=== PATIENT | female | born 1965 | race Caucasian/White ===

== ENCOUNTER 2019-05-14 09:56 | Emergency (ER) | payer BC ==
--- OUTSIDE RECORDS SUMMARY | 2019-05-14 11:06 | XMS REPORT | Continuity of Care Document ---
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 Benign essential hypertension Jonathan Messer DO Onset: 09/21/2014 Raynaud's disease Rosa Isela Moser, KELLY Onset: 06/28/2013 Moderate major depression, single episode Jonathan Messer DO Onset: 2004 Gastroesophageal reflux disease Jonathan Messer DO Onset: 02/05/2005 Peptic reflux disease Jonathan Messer DO Onset: 03/20/2015 Hereditary hemochromatosis Yonathan Gomez DO Onset: 04/20/2018 Social History Type Date Description Comments Sex Unknown Marital Status Lives With Spouse 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 Tobacco Use Start: Unknown Never Smoked Cigarettes ETOH Use Occasionally consumes alcohol Tobacco Use Start: Unknown End: Patient is a former smoker 25 years ago Unknown Allergies, Adverse Reactions, Alerts Active Allergies Reaction Severity Comments Date Bactrim 05/07/2016 Inactive Allergies NKDA 11/29/2014 Medications Active Medications SIG Qnty Indications Ordering Provider Date Vitamin D-1000 1 by mouth every Yonathan Gomez, 02/02/2019 Maximum Strength day DO 1000Unit Tablets Trazodone HCL Take 1 Tablet By 30tabs Yonathan Gomez, 09/07/2018 50mg Mouth AT Bedtime DO Tablets as Needed For Insomnia Metaxalone 1 by mouth every 30tabs Yonathan Gomez, 09/07/2018 800mg night at bedtime DO Tablets as needed for muscle spasm Lisinopril Take 1 Tablet By 90tabs I10 Yonathan Gomez, 10/06/2015 40mg Tablets Mouth Every Day DO Wellbutrin XL 1 po qd 30tabs J01.00 Bruno Erickson MD 150mg Tablets ER 24HR Amphetamine-Dextroamp 2 po daily J01.00 Bruno Erickson MD hetamine 20mg Tablets Vitamin B12 5000 Units Daily Unknown History Medications [facility] Vitamin B12 Unknown 02/02/2019 - 04/22/2019 Metronidazole 1 by mouth 2 times 14tabs K57.32 Ashely, 08/28/2018 - 500mg a day MD Lizzy 09/04/2018 Tablets Ciprofloxacin HCL 1 by mouth twice a 14tabs K57.32 Ashely, 08/28/2018 - 500mg day MD Lizzy 09/04/2018 Tablets Azithromycin 2 tablets by mouth 6tabs J01.00 Jason, 04/16/2018 - 250mg on day 1 then 1 DO Yonathan 04/20/2018 Tablets tablet on days 2-5 Ciprofloxacin HCL 1 by mouth twice a 14tabs R10.32 Jason, 01/08/2018 - 500mg day DO Yonathan 01/15/2018 Tablets Metronidazole 1 by mouth three 21tabs R10.32 Jason, 01/08/2018 - 500mg times a day x 7 DO Yonathan 01/15/2018 Tablets days Amlodipine Besylate 1 by mouth every 30tabs I73.00 Anna, 10/16/2017 - day DO Jonathan 09/04/2018 2.5mg Tablets Metaxalone Take 1 Tablet By 30tabs M54.5 Anna, 06/12/2017 - 800mg Mouth Three Times DO Jonathan 06/22/2017 Tablets Daily Triamcinolone 1 thin application 5gm K12.0 Daniel, 05/28/2017 - Acetonide to affected areas AKIKO Rdz 01/06/2019 0.1% Paste at bedtime Benzonatate 1 by mouth three 30caps J06.9 Anna, 12/06/2016 - 200mg times a day DO Jonathan 04/16/2017 Capsules Azithromycin 2 by mouth on day 1 6tabs R05 Digiovanna, 08/05/2016 - 250mg and 1 by mouth day KELLY Natarajan 08/10/2016 Tablets 2-5 Benzonatate 1 by mouth every 8 30caps R05 Digiovanna, 07/16/2016 - 200mg hours as needed for KELLY Natarajan 10/16/2016 Capsules cough, may cause drowsiness Cephalexin 1 by mouth three 30tabs L03.211 Digiovanna, 05/07/2016 - 500mg times a day KELLY Natarajan 05/17/2016 Tablets Amlodipine Besylate 1 by mouth every 90tabs I73.00 Anna, 04/09/2016 - day DO Jonathan 04/16/2017 2.5mg Tablets Lidocaine Apply 1 Patch To 30units M54.5 Anna, 04/09/2016 - 5% Patches Low Back Area Q 12 DO Jonathan 04/16/2017 Hours prn Diflucan 1 by mouth now 1tabs Anna, 03/15/2016 - 150mg Tablets DO Jonathan 10/16/2016 Cephalexin 1 by mouth three 30tabs L03.211 Anna, 03/12/2016 - 500mg times a day DO Jonathan 04/09/2016 Tablets Sulfamethoxazole/Trim 1 by mouth every 12 20tabs L03.211 Digiovanna, 03/11 - ethoprim DS hours for 10 days KELLY Natarajan 03/12/2016 800-160mg Tablets Tramadol HCL 1 by mouth every 4 60tabs Anna, 12/26/2015 - 50mg hours as needed DO Jonathan 10/16/2016 Tablets Diflucan 1 PO Now 1tabs Anna, 09/05/2015 - 150mg Tablets DO Jonathan 10/06/2015 Ciprofloxacin HCL 1 by mouth twice a 20tabs K57.32 Anna, 08/29/2015 - 500mg day Jonathan, DO 10/06/2015 Tablets Flagyl 1 by mouth twice a 20tabs K57.32 Nana, 08/29/2015 - 500mg Tablets day Jonathan, DO 10/06/2015 Fluconazole 1 by mouth daily as 1tabs Gomez, 08/03/2015 - 150mg needed Yonathan, DO 08/04/2015 Tablets Triamcinolone apply to affected 15gm N76.0 Gomez, 08/02/2015 - Acetonide area bid-tid Yonathan, DO 08/09/2015 0.1% Cream Ciprofloxacin HCL 1 by mouth twice a 10tabs R35.0 Gomez, 08/02/2015 - 250mg day x 5 days Yonathan, DO 08/07/2015 Tablets Robitussin ac 2 teaspoon by mouth 300ml 465.9 Anna, 11/29/2014 - every 4 hours as Jonathan, DO 04/06/2015 needed x 5 days Lisinopril 1 By Mouth Every 90tabs Anna, 03/03/2014 - 20mg Tablets Day Jonathan, DO 10/06/2015 Metaxalone Take 1 Tablet By 30tabs M54.5 Anna, 06/28/2013 - 800mg Mouth Three Times Jonathan, DO 04/16/2017 Tablets Daily Valacyclovir HCL take 1 tablet by 10tabs B00.9 Gomez, 10/29/2012 - 500mg mouth twice daily Yonathan, DO 03/07/2018 Tablets for 5 days Immunizations CPT Code Status Date Vaccine Reaction Lot # [id number] Given 08/18/2018 Influenza Virus Vaccine,Quadrivalent,Split, Preserv Free, 0.5mL,[place] [address] Given 11/21/2017 Influenza Vac, Quadrivalent, Split, 0.5mL Dosage, Im Use Q2037 Given 10/01/2016 Fluvirin Immunization Q2037 Given 09/18/2015 Fluvirin Immunization 03641 Given 09/18/2015 Influenza Vaccine Preservative Free 6-35 Months Of Age 46785 Given 08/29/2015 Tdap (Adacel) Ages 7 And Im inj completed, Pt [id number] Above Only tolerated well 38112 Given 07/22/2013 Afluria Or Fluvirin Flu Vac Intramuscular 16974 Given 02/05/2005 Immunization Td 7 Yrs Or Older 27043 Given 09/12/2003 Afluria Or Fluvirin Flu Vac Intramuscular Vital Signs Date Vital Result Comment 04/22/2019 7:58am Weight 153.00 lb Heart Rate 76 /min BP Systolic 118 mmHg BP Diastolic 78 mmHg Respiratory Rate 17 /min Height 67.75 inches 5'7.75" BMI (Body Mass Index) 23.4 kg/m2 01/06/2019 1:20pm Weight 150.00 lb Heart Rate 90 /min BP Systolic 144 mmHg BP Diastolic 84 mmHg BP Systolic Recheck 128 mmHg BP Diastolic Recheck 80 mmHg Respiratory Rate 17 /min Height 67.75 inches 5'7.75" (12/06/16) BMI (Body Mass Index) 23.0 kg/m2 10/20/2018 10:10am Weight 150.00 lb Heart Rate 76 /min BP Systolic 122 mmHg BP Diastolic 80 mmHg Respiratory Rate 17 /min Height 67.75 inches 5'7.75" (12/06/16) BMI (Body Mass Index) 23.0 kg/m2 09/07/2018 11:14am Weight 152.00 lb Heart Rate 76 /min BP Systolic 130 mmHg BP Diastolic 80 mmHg Respiratory Rate 16 /min Height 67.75 inches 5'7.75" (12/06/16) BMI (Body Mass Index) 23.3 kg/m2 08/28/2018 1:20pm Body Temperature 98.3 F Weight 152.00 lb Heart Rate 74 /min BP Systolic 132 mmHg BP Diastolic 80 mmHg Respiratory Rate 14 /min Height 67.75 inches 5'7.75" (12/06/16) O2 % BldC Oximetry 100 % BMI (Body Mass Index) 23.3 kg/m2 04/20/2018 3:50pm Body Temperature 99.2 F Weight 158.00 lb Heart Rate 96 /min BP Systolic 138 mmHg BP Diastolic 84 mmHg Respiratory Rate 17 /min Height 67.75 inches 5'7.75" (12/06/16) BMI (Body Mass Index) 24.2 kg/m2 04/16/2018 10:36am Body Temperature 98.6 F 600MG Advil 2 Hours Ago Weight 157.00 lb Heart Rate 94 /min BP Systolic 122 mmHg BP Diastolic 72 mmHg Respiratory Rate 18 /min Height 67.75 inches 5'7.75" (12/06/16) O2 % BldC Oximetry 99 % BMI (Body Mass Index) 24.0 kg/m2 01/08/2018 4:28pm Body Temperature 98.4 F Weight 161.00 lb Heart Rate 90 /min BP Systolic 118 mmHg BP Diastolic 72 mmHg Respiratory Rate 16 /min Height 67.75 inches 5'7.75" (12/06/16) O2 % BldC Oximetry 100 % BMI (Body Mass Index) 24.7 kg/m2 Pain Level 1 10/16/2017 7:59am Weight 156.00 lb Heart Rate 72 /min 72 Reg BP Systolic 118 mmHg BP Diastolic 72 mmHg BP Systolic Recheck 126 mmHg BP Diastolic Recheck 78 mmHg Respiratory Rate 18 /min Height 67.75 inches 5'7.75" (12/06/16) BMI (Body Mass Index) 23.9 kg/m2 05/28/2017 2:31pm Body Temperature 98.4 F Weight 152.00 lb Heart Rate 78 /min BP Systolic 120 mmHg BP Diastolic 80 mmHg Respiratory Rate 18 /min Height 67.75 inches 5'7.75" (12/06/16) BMI (Body Mass Index) 23.3 kg/m2 04/16/2017 9:33am Weight 154.44 lb Heart Rate 76 /min 72 Reg BP Systolic 114 mmHg BP Diastolic 76 mmHg BP Systolic Recheck 120 mmHg BP Diastolic Recheck 78 mmHg Respiratory Rate 16 /min Height 67.75 inches 5'7.75" (12/06/16) BMI (Body Mass Index) 23.7 kg/m2 12/06/2016 8:28am Body Temperature 97.4 F Weight 163.00 lb Heart Rate 72 /min BP Systolic 114 mmHg BP Diastolic 78 mmHg Respiratory Rate 18 /min Height 67.75 inches 5'7.75" (12/06/16) O2 % BldC Oximetry 100 % Ra BMI (Body Mass Index) 25.0 kg/m2 10/16/2016 10:47am Weight 159.00 lb Heart Rate 66 /min 72 Reg BP Systolic 110 mmHg BP Diastolic 82 mmHg BP Systolic Recheck 110 mmHg BP Diastolic Recheck 80 mmHg Respiratory Rate 18 /min Height 68 inches 5'8" (10/16/16) BMI (Body Mass Index) 24.2 kg/m2 08/05/2016 8:11am Body Temperature 97.2 F Weight 150.00 lb Heart Rate 84 /min BP Systolic 110 mmHg BP Diastolic 70 mmHg Respiratory Rate 18 /min Height 68 inches 5'8" O2 % BldC Oximetry 100 % BMI (Body Mass Index) 22.8 kg/m2 07/16/2016 11:23am Body Temperature 98.2 F Weight 146.00 lb Heart Rate 94 /min BP Systolic 132 mmHg BP Diastolic 80 mmHg Respiratory Rate 17 /min Height 68 inches 5'8" O2 % BldC Oximetry 99 % Ra BMI (Body Mass Index) 22.2 kg/m2 04/09/2016 8:14am Weight 149.00 lb Heart Rate 72 /min BP Systolic 122 mmHg BP Diastolic 80 mmHg Respiratory Rate 18 /min Height 68 inches 5'8" BMI (Body Mass Index) 22.7 kg/m2 03/11/2016 10:45am Body Temperature 98.6 F Weight 156.00 lb Heart Rate 74 /min BP Systolic 110 mmHg BP Diastolic 72 mmHg Respiratory Rate 18 /min Height 68 inches 5'8" BMI (Body Mass Index) 23.7 kg/m2 01/02/2016 1:45pm Weight 158.50 lb Heart Rate 72 /min BP Systolic 110 mmHg BP Diastolic 68 mmHg Respiratory Rate 18 /min 12/25/2015 3:59pm Body Temperature 98.4 F Weight 159.44 lb Heart Rate 66 /min BP Systolic 128 mmHg BP Diastolic 70 mmHg Respiratory Rate 18 /min 10/06/2015 9:03am Weight 154.44 lb Heart Rate 66 /min 72 reg BP Systolic 130 mmHg BP Diastolic 78 mmHg BP Systolic Recheck 138 mmHg BP Diastolic Recheck 88 mmHg Respiratory Rate 18 /min 08/29/2015 2:19pm Weight 985.00 lb Heart Rate 78 /min BP Systolic 110 mmHg BP Diastolic 80 mmHg Respiratory Rate 18 /min Height 68 inches 5'8" BMI (Body Mass Index) 149.8 kg/m2 08/02/2015 1:51pm Body Temperature 97.0 F Weight 157.00 lb Heart Rate 82 /min BP Systolic 102 mmHg BP Diastolic 62 mmHg Respiratory Rate 18 /min Height 68 inches 5'8" BMI (Body Mass Index) 23.9 kg/m2 04/06/2015 1:50pm Weight 152.00 lb Heart Rate 60 /min 72 Reg BP Systolic 120 mmHg BP Diastolic 76 mmHg BP Systolic Recheck 110 mmHg BP Diastolic Recheck 74 mmHg Respiratory Rate 18 /min Height 68 inches 5'8" O2 Saturation Level with Exercise 99 % Ra BMI (Body Mass Index) 23.1 kg/m2 11/29/2014 10:56am Body Temperature 98.2 F Weight 156.00 lb Heart Rate 66 /min BP Systolic 134 mmHg BP Diastolic 82 mmHg Respiratory Rate 24 /min Height 68 inches 5'8" O2 % BldC Oximetry 99 % Ra BMI (Body Mass Index) 23.7 kg/m2 09/21/2014 9:21am BP Systolic 118 mmHg BP Diastolic 80 mmHg 09/21/2014 9:21am Weight 149.00 lb Heart Rate 72 /min 80 Reg BP Systolic 120 mmHg BP Diastolic 82 mmHg Respiratory Rate 18 /min Height 68.01 inches 5'8.01" 09/1603/21/2014 10:19am BP Systolic 114 mmHg BP Diastolic 78 mmHg 03/21/2014 10:19am Weight 147.00 lb Heart Rate 78 /min 72 Reg BP Systolic 112 mmHg BP Diastolic 62 mmHg Respiratory Rate 18 /min Height 68 inches 5'8" 02/17/2014 1:04pm BP Systolic 148 mmHg Both Arms BP Diastolic 100 mmHg Both Arms 02/17/2014 1:04pm Weight 150.00 lb Heart Rate 72 /min 80 Reg BP Systolic 142 mmHg BP Diastolic 90 mmHg Respiratory Rate 18 /min Height 68 inches 5'8" 01/13/2014 10:12am BP Systolic 130 mmHg BP Diastolic 84 mmHg 01/13/2014 10:12am Body Temperature 98.7 F Weight 158.00 lb Heart Rate 72 /min BP Systolic 150 mmHg BP Diastolic 92 mmHg Respiratory Rate 18 /min 06/28/2013 1:30pm Weight 141.00 lb Heart Rate 66 /min BP Systolic 102 mmHg BP Diastolic 62 mmHg Respiratory Rate 18 /min 10/13/2012 9:25am Weight 142.06 lb Heart Rate 68 /min BP Systolic 108 mmHg BP Diastolic 72 mmHg Respiratory Rate 16 /min Height 68 inches 5'8" 07/11/2011 3:39pm Weight 149.00 lb Heart Rate 72 /min BP Systolic 122 mmHg BP Diastolic 62 mmHg Respiratory Rate 24 /min 07/04/2011 2:15pm Body Temperature 98.6 F Weight 148.00 lb Heart Rate 72 /min BP Systolic 110 mmHg BP Diastolic 62 mmHg Respiratory Rate 18 /min Height 68 inches 5'8" 03/01/2011 9:49am Body Temperature 98.9 F Weight 166.00 lb Heart Rate 68 /min BP Systolic 120 mmHg BP Diastolic 74 mmHg Respiratory Rate 14 /min Height 68 inches 5'8" 09/10/2010 2:58pm Weight 175.00 lb BP Systolic 124 mmHg BP Diastolic 70 mmHg 11/10/2009 3:14pm Weight 182.00 lb Heart Rate 78 /min BP Systolic 122 mmHg BP Diastolic 80 mmHg Respiratory Rate 18 /min 05/08/2009 3:00pm Weight 165.00 lb Heart Rate 72 /min BP Systolic 128 mmHg BP Diastolic 68 mmHg Respiratory Rate 18 /min 01/06/2009 2:54pm Weight 180.00 lb Heart Rate 78 /min BP Systolic 118 mmHg BP Diastolic 72 mmHg Respiratory Rate 18 /min 12/09/2008 1:31pm Weight 184.00 lb Heart Rate 72 /min BP Systolic 118 mmHg BP Diastolic 82 mmHg Respiratory Rate 18 /min 12/02/2008 3:15pm Weight 183.00 lb Heart Rate 72 /min BP Systolic 130 mmHg BP Diastolic 82 mmHg Respiratory Rate 24 /min 08/31/2008 3:50pm Weight 180.00 lb Heart Rate 78 /min BP Systolic 122 mmHg BP Diastolic 88 mmHg Respiratory Rate 16 /min 11/04/2007 3:21pm Body Temperature 97.7 F Weight 174.25 lb Heart Rate 78 /min BP Systolic 118 mmHg BP Diastolic 86 mmHg Respiratory Rate 24 /min O2 % BldC Oximetry 99 % 10/09/2007 3:55pm Weight 170.00 lb Heart Rate 62 /min BP Systolic 124 mmHg BP Diastolic 76 mmHg Respiratory Rate 14 /min 09/03/2007 1:54pm Heart Rate 72 /min BP Systolic 112 mmHg BP Diastolic 74 mmHg Respiratory Rate 18 /min 04/17/2007 3:58pm Body Temperature 97.9 F Weight 166.00 lb Heart Rate 78 /min BP Systolic 112 mmHg BP Diastolic 64 mmHg Respiratory Rate 18 /min 02/19/2007 2:41pm Weight 161.00 lb Heart Rate 72 /min BP Systolic 112 mmHg BP Diastolic 68 mmHg Respiratory Rate 12 /min 02/13/2007 3:01pm Heart Rate 72 /min BP Systolic 122 mmHg BP Diastolic 70 mmHg Respiratory Rate 18 /min 11/21/2005 10:18am Body Temperature 98.7 F Weight 176.00 lb Heart Rate 90 /min BP Systolic 120 mmHg RIGHT BP Diastolic 90 mmHg RIGHT 10/15/2005 1:05pm Heart Rate 96 /min Reg BP Systolic 128 mmHg LEFT BP Diastolic 80 mmHg LEFT 09/09/2005 10:48am BP Systolic 130 mmHg HR 90Reg BP Diastolic 88 mmHg HR 90Reg 09/09/2005 10:48am Weight 175.00 lb Heart Rate 96 /min Reg BP Systolic 140 mmHg LEFT BP Diastolic 98 mmHg LEFT 08/08/2005 1:45pm Weight 167.00 lb Heart Rate 96 /min Reg BP Systolic 120 mmHg LEFT BP Diastolic 86 mmHg LEFT 07/09/2005 2:07pm Weight 167.00 lb Heart Rate 96 /min Reg BP Systolic 124 mmHg LEFT BP Diastolic 80 mmHg LEFT 02/05/2005 3:01pm Weight 172.00 lb Heart Rate 108 /min Reg BP Systolic 112 mmHg RIGHT BP Diastolic 88 mmHg RIGHT 01/18/2005 3:24pm Weight 169.00 lb Heart Rate 104 /min Reg BP Systolic 130 mmHg BP Diastolic 88 mmHg Results Test Date Facility Test Result H/L Range Note Basic (BMP) 04/15/2019 [facility] Sodium 142 mmol/L 135-146 1 Potassium 4.3 mmol/L 3.5-5.2 Chloride# 102 mmol/L 97-110 2 Carbon Dioxide 30 mmol/L 24-34 Glucose 110 mg/dL High 70-105 BUN 21 mg/dL 6-26 Creatinine 1.1 mg/dL 0.5-1.4 Calcium 9.9 mg/dL 8.5-10.5 3 Female Egfr 55 Low >60 4 Male Egfr 73 >60 5 Anion Gap 10 mmol/L 5-15 6 CBC with Auto Diff-fcmg 04/15/2019 [facility] WBC 4.2 K/uL 4.1-11.0 RBC 4.47 M/uL 4.00-5.40 Hemoglobin 13.2 gm/dL 12.0-16.0 Hematocrit 39.2 % 36.0-47.0 MCV 87.7 fL 80.0-97.0 MCH 29.6 pg 27.0-32.0 MCHC 33.7 g/dL 32.0-36.0 RDW 13.2 % 11.5-14.5 PLT Count 219 K/ul 140-400 MPV 9.7 FL 7.1-10.7 Neutrophil 51.5 % 35.0-75.0 Lymphocyte 34.2 % 16.0-52.0 Monocyte 10.4 % High 2.0-10.0 Eosinophil 3.3 % 0.0-5.0 Basophil 0.6 % 0.0-4.0 Abs Neutrophils 2.2 K/uL 2.1-8.0 Abs Lymphocytes 1.4 K/uL 0.8-5.5 Abs Monocytes 0.4 K/uL 0.1-1.0 Abs Eosinophils 0.1 K/uL 0.0-0.5 Abs Basophils 0.0 K/uL 0.0-0.3 Laboratory test finding 04/15/2019 [facility] TSH 2.78 uIU/mL 0.35-4.94 Lipid Treatment 04/15/2019 [facility] Cholesterol 194 mg/dL 50-199 Triglycerides 86 mg/dL 30-200 HDL 78 mg/dL 35-85 7 Chol/ HDL Ratio 2.5 ratio Low 3.7-5.6 VLDL 17 mg/dL 2-29 LDL (Calc) 99 mg/dL 20-99 8 Alt 13 U/L 3-42 Ast 19 U/L 8-42 Laboratory test finding 04/15/2019 [facility] Vitamin B12 536 pg/mL 180- 914 Vitamin D 25 Hydroxy 28 ng/mL Low 30-100 9 Lyme Igm/Igg AB -RL 01/22/2019 [facility] Lyme Igm/Igg AB NEGATIVE (Neg) 10 @ Urinalysis With 01/04/2019 [facility] Urine Color YELLOW Yellow 11 Microscopic (315)- - Urine Clarity CLEAR Clear Urine Glucose - Dipstick NEGATIVE mg/dL Negative Urine Bilirubin - Dipstick NEGATIVE Negative Urine Ketone NEGATIVE mg/dL Negative Urine Specific [place] 1.015 N 1.010-1.030 Urine Blood TRACE Negative Urine PH 8.0 High 6.5-7.5 Urine Protein - Dipstick NEGATIVE mg/dL Negative Urine Urobilinogen - Dipstick 0.2 E.U./dL N 0.2-1.0 Urine Nitrite - Dipstick NEGATIVE Negative Urine Leuk Esterase TRACE Abnormal Negative Urine RBC 0-2 rbc/hpf 0-2 Urine WBC 2-5 wbc/hpf 0-7 Urine Epithelial Cells FEW /lpf None Seen Urine Bacteria VERY FEW None Seen Source: URINE, CLEAN CAT <SEE NOTE> 12 CBS W/Automated Diff 01/04/2019 [facility] White Blood 6.4 K/uL N 3.1-10.7 (315)- - Count Red Blood Count 4.67 M/uL N 3.90-5.40 Hemoglobin 13.5 gm/dL N 11.6-15.8 Hematocrit 40.0 % N 36.0-46.1 Mean Cell Volume 85.7 fl N 80.9-99.0 Mean Corpuscular HGB 28.9 pg N 25.9-32.7 Mean Corpuscular HGB Conc 33.8 g/dL N 30.8-34.3 Platelet Count 246 K/uL N 155-360 Red Cell Distri Width SD 38.8 fl N 36-47 Red Cell Distri Width %CV 12.8 % N 11.7-14.4 Mean Platelet Volume 10.6 fL N 8.9-12.4 Neut% 69.6 % N 40.4-72.8 Lymph % 18.6 % Low 20.0-42.0 Stewart % 10.7 % N 4.3-13.2 Eo% 0.9 % N 0.0-6.6 Bas% 0.2 % N 0.0-1.1 Neut# 4.42 K/uL N 1.8-7.0 Lymph # 1.18 K/uL N 1.0-4.0 Stewart # 0.68 K/uL N 0.3-0.9 Eos # 0.06 K/uL N 0.0-0.5 Baso # 0.01 K/uL N 0.0-0.1 CBC with Auto Diff[facility]L 4.1-11.0 13 RBC 4.42 M/uL 4.00-5.40 Hemoglobin 13.1 gm/dL 12.0-16.0 Hematocrit 38.9 % 36.0-47.0 MCV 87.9 fL 80.0-97.0 MCH 29.6 pg 27.0-32.0 MCHC 33.7 g/dL 32.0-36.0 RDW 12.7 % 11.5-14.5 PLT Count 226 K/ul 140-400 MPV 9.6 FL 7.1-10.7 Neutrophil 59.5 % 35.0-75.0 Lymphocyte 26.5 % 16.0-52.0 Monocyte 11.4 % High 2.0-10.0 Eosinophil 2.0 % 0.0-5.0 Basophil 0.6 % 0.0-4.0 Abs Neutrophils 3.2 K/uL 2.1-8.0 Abs Lymphocytes 1.4 K/uL 0.8-5.5 Abs Monocytes 0.6 K/uL 0.1-1.0 Abs Eosinophils 0.1 K/uL 0.0-0.5 Abs Basophils 0.0 K/uL 0.0-0.3 Basic (BMP) 10/13/2018 [facility] Sodium 143 mmol/L 135-146 14 Potassium 4.2 mmol/L 3.5-5.2 Chloride# 104 mmol/L 97-110 15 Carbon Dioxide 31 mmol/L 24-34 Glucose 86 mg/dL 70-105 BUN 24 mg/dL 6-26 Creatinine 0.9 mg/dL 0.5-1.4 Calcium 9.4 mg/dL 8.5-10.2 Non Kimberly Egfr >60 >60 16 Kimberly Egfr >60 >60 17 Anion Gap 8 mmol/L 5-15 18 Laboratory test finding 10/13/2018 [facility] TSH 1.91 uIU/mL 0.35-4.94 Lipid Treatment 10/13/2018 [facility] Cholesterol 186 mg/dL 50-199 Triglycerides 92 mg/dL 30-200 HDL 60 mg/dL 35-85 19 Chol/ HDL Ratio 3.1 ratio Low 3.7-5.6 VLDL 18 mg/dL 2-29 LDL (Calc) 107 mg/dL High 20-99 20 Alt 12 U/L 3-42 Ast 16 U/L 8-42 Urine Microscopic-Only 08/28/2018 [facility] Urine WBC 0-2 [HPF] (0-5) 21 Urine RBC NONE SEEN [HPF] (0-2) Mucus 1+ [HPF] Caox Crystals 1+ [HPF] 22 Laboratory test 08/28/2018 [facility] Urine Culture Microbiology res no w 23 finding <SEE NOTE> CBC With Auto Diff 04/13/2018 [facility] WBC 7.3 K/uL 4.1-11. 24 0 RBC 4.36 M/uL 4.00-5.40 Hemoglobin 12.9 gm/dL 12.0-16.0 Hematocrit 37.9 % 36.0-47.0 MCV 86.9 fL 80.0-97.0 MCH 29.6 pg 27.0-32.0 MCHC 34.1 g/dL 32.0-36.0 RDW 13.7 % 11.5-14.5 PLT Count 212 K/ul 140-400 MPV 9.3 FL 7.1-10.7 Neutrophil 80.8 % High 35.0-75.0 Lymphocyte 9.5 % Low 16.0-52.0 Monocyte 8.7 % 2.0-10.0 Eosinophil 0.7 % 0.0-5.0 Basophil 0.3 % 0.0-4.0 Abs Neutrophils 5.9 K/uL 2.1-8.0 Abs Lymphocytes 0.7 K/uL Low 0.8-5.5 Abs Monocytes 0.6 K/uL 0.1-1.0 Abs Eosinophils 0.0 K/uL 0.0-0.5 Abs Basophils 0.0 K/uL 0.0-0.3 Basic (BMP) 04/13/2018 [facility] Sodium 140 mmol/L 135-146 25 Potassium 4.3 mmol/L 3.5-5.2 Chloride# 102 mmol/L 97-110 26 Carbon Dioxide 28 mmol/L 24-34 Glucose 95 mg/dL 70-105 BUN 19 mg/dL 6-26 Creatinine 1.2 mg/dL 0.5-1.4 Calcium 9.6 mg/dL 8.5-10.2 Non Kimberly Egfr 49 Low >60 27 Kimberly Egfr 60 Low >60 28 Anion Gap 10 mmol/L 5-15 29 Lipid 04/13/2018 [facility] Cholesterol 200 mg/dL High 50-199 Triglycerides 137 mg/dL 30-200 HDL 80 mg/dL 35-85 30 Chol/ HDL Ratio 2.5 ratio Low 3.7-5.6 VLDL 27 mg/dL 2-29 LDL (Calc) 93 mg/dL 20-99 31 Laboratory test finding 04/13/2018 [facility] Magnesium 2.1 mg/dL 1.5-2.7 Hepatic Panel (LFT) 04/13/2018 [facility] Total Protein 6.8 g/dL 6.0-8.0 Albumin 4.5 g/dL 3.6-4.9 Total Bilirubin 0.7 mg/dL 0.1-1.3 Direct Bilirubin 0.1 mg/dL 0.0-0.4 Alkaline Phosphatase 51 U/L 24-140 Alt 11 U/L 3-42 Ast 17 U/L 8-42 CBC With Auto Diff 10/09/2017 [facility] WBC 4.5 K/uL 4.1-11.0 RBC 4.58 M/uL 4.00-5.40 Hemoglobin 13.5 gm/dL 12.0-16.0 Hematocrit 40.6 % 36.0-47.0 MCV 88.6 fL 80.0-97.0 MCH 29.5 pg 27.0-32.0 MCHC 33.3 g/dL 32.0-36.0 RDW 12.6 % 11.5-14.5 PLT Count 247 K/ul 140-400 MPV 9.9 FL 7.1-10.7 Neutrophil 55.0 % 35.0-75.0 Lymphocyte 30.0 % 16.0-52.0 Monocyte 11.6 % High 2.0-10.0 Eosinophil 2.8 % 0.0-5.0 Basophil 0.6 % 0.0-4.0 Abs Neutrophils 2.5 K/uL 2.1-8.0 Abs Lymphocytes 1.3 K/uL 0.8-5.5 Abs Monocytes 0.5 K/uL 0.1-1.0 Abs Eosinophils 0.1 K/uL 0.0-0.5 Abs Basophils 0.0 K/uL 0.0-0.3 Basic (BMP) 10/09/2017 [facility] Sodium 141 mmol/L 135-146 32 Potassium 4.1 mmol/L 3.5-5.2 Chloride# 101 mmol/L 97-110 33 Carbon Dioxide 30 mmol/L 24-34 Glucose 71 mg/dL 70-105 Creatinine 1.1 mg/dL 0.5-1.4 Calcium 10.2 mg/dL 8.5-10.2 Non Kimberly Egfr 53 Low >60 34 Kimberly Egfr >60 >60 35 Anion Gap 10 mmol/L 7-16 36 BUN 22 mg/dL 6-26 Lipid 10/09/2017 [facility] Cholesterol 206 mg/dL High 50-199 Triglycerides 120 mg/dL 30-150 HDL 78 mg/dL 45-85 37 Chol/ HDL Ratio 2.6 ratio Low 3.7-5.6 VLDL 24 mg/dL 2-29 LDL (Calc) 104 mg/dL 20-129 38 Laboratory test finding 10/09/2017 [facility] Magnesium 2.1 mg/dL 1.5-2.7 Hepatic Panel (LFT) 10/09/2017 [facility] Total Protein 6.7 g/dL 6.0-8.0 Albumin 4.8 g/dL 3.6-4.9 Total Bilirubin 0.6 mg/dL 0.1-1.3 Direct Bilirubin 0.1 mg/dL 0.0-0.4 Alkaline Phosphatase 54 U/L 24-140 Alt 12 U/L 3-42 Ast 16 U/L 8-42 Laboratory test 05/07/2017 [facility] Sedimentation Rate 2 mm/hr N 0-30 39, 40 finding (315)- - Vitamin B12 And 05/07/2017 [facility] Vitamin B12 316 pg/ mL N 193-986 Folate (315)- - Folic Acid 15.5 ng/mL N 3.1-17.5 Laboratory test 05/07/2017 [facility] Gamma Glutamyl 10 U /L N 5-85 finding (315)- - Transpeptidase CBC With Auto 04/09/2017 [facility] WBC 5.7 K/uL 4.1-11.0 41 Diff RBC 4.45 M/uL 4.00-5.40 Hemoglobin 13.0 gm/dL 12.0-16.0 Hematocrit 39.2 % 36.0-47.0 MCV 88.1 fL 80.0-97.0 MCH 29.2 pg 27.0-32.0 MCHC 33.2 g/dL 32.0-36.0 RDW 13.5 % 11.5-14.5 PLT Count 231 K/ul 140-400 Neutrophil 55.9 % 35.0-75.0 Lymphocyte 30.3 % 16.0-52.0 Monocyte 11.5 % High 2.0-10.0 Eosinophil 1.8 % 0.0-5.0 Basophil 0.5 % 0.0-4.0 Abs Neutrophils 3.2 K/uL 2.1-8.0 Abs Lymphocytes 1.7 K/uL 0.8-5.5 Abs Monocytes 0.7 K/uL 0.1-1.0 Abs Eosinophils 0.1 K/uL 0.0-0.5 Abs Basophils 0.0 K/uL 0.0-0.3 Basic (BMP) 04/09/2017 [facility] Sodium 143 mmol/L 135-146 42 Potassium 4.6 mmol/L 3.5-5.2 Chloride# 105 mmol/L 97-110 43 Carbon Dioxide 29 mmol/L 24-34 Glucose 92 mg/dL 70-105 BUN 27 mg/dL High 6-26 Creatinine 1.0 mg/dL 0.5-1.4 Calcium 9.9 mg/dL 8.5-10.2 Non Kimberly Egfr 59 Low >60 44 Kimberly Egfr >60 >60 45 Anion Gap 14 mmol/L 7-16 46 Lipid 04/09/2017 [facility] Cholesterol 195 mg/dL 50-199 Triglycerides 94 mg/dL 30-150 HDL 72 mg/dL 45-85 47 Chol/ HDL Ratio 2.7 ratio Low 3.7-5.6 VLDL 19 mg/dL 2-29 LDL (Calc) 104 mg/dL 20-129 48 Laboratory test finding 04/09/2017 [facility] Magnesium 2.0 mg/dL 1.5-2.7 Hepatic Panel (LFT) 04/09/2017 [facility] Total Protein 6.4 g/dL 6.0-8.0 Albumin 4.6 g/dL 3.6-4.9 Total Bilirubin 0.6 mg/dL 0.1-1.3 Direct Bilirubin 0.1 mg/dL 0.0-0.4 Alkaline Phosphatase 46 U/L 24-140 Alt 14 U/L 3-42 Ast 15 U/L 8-42 CBS W/Automated Diff 02/11/2017 [facility] White Blood 4.3 K/uL N 3.1-10.7 49 (315)- - Count Red Blood Count 4.51 M/uL N 3.90-5.40 Hemoglobin 13.2 gm/dL N 11.6-15.8 Hematocrit 40.3 % N 36.0-46.1 Mean Cell Volume 89.4 fl N 80.9-99.0 Mean Corpuscular HGB 29.3 pg N 25.9-32.7 Mean Corpuscular HGB Conc 32.8 g/dL N 30.8-34.3 Platelet Count 260 K/uL N 150-400 Red Cell Distri Width SD 43.8 fl N 3-47 Red Cell Distri Width %CV 13.7 % N 11.7-14.4 Mean Platelet Volume 12.0 fL N 8.9-12.4 Neut% 51.8 % N 40.4-72.8 Lymph % 35.3 % N 20.0-42.0 Stewart % 10.3 % N 4.3-13.2 Eo% 2.1 % N 0.0-6.6 Bas% 0.5 % N 0.0-1.1 Neut# 2.22 K/uL N 1.8-7.0 Lymph # 1.51 K/uL N 1.0-4.0 Stewart # 0.44 K/uL N 0.3-0.9 Eos # 0.09 K/uL N 0.0-0.5 Baso # 0.02 K/uL N 0.0-0.1 Iron-Tibc-%Sat 02/11/2017 [facility] Serum Iron 76 g/ dL N 50-170 (315)- - Total Iron Binding Capacity 353 g/dL N 250-450 Transferrin %Saturation 22 % N 12-57 Laboratory test finding 02/11/2017 [facility] Ferritin 20 ng/mL N 8-252 (315)- - Comprehensive Metabolic 02/11/2017 [facility] Glucose TNP mg/dL 74-106 50 Panel (315)- - BUN 23 mg/dL High 7-18 Creatinine 1.1 mg/dL N 0.6-1.3 Glom Filtration Rate, Estimate 56 mL/min >60 If >60 mL/min >60 51 BUN/Creat 20.9 ratio Sodium 141 mmol/L N 136-145 Potassium 4.1 mmol/L N 3.5-5.1 Chloride 104 mmol/L N 98-107 Carbon Dioxide 30 mmol/L N 21-32 Anion Gap 7 mEq/L Low 8-16 Calcium 9.1 mg/dL N 8.5-10.1 Total Protein 7.2 g/dL N 6.4-8.2 Albumin 4.1 g/dL N 3.4-5.0 Globulin 3.1 g/dL N 1.9-4.3 Alb/Glob 1.3 ratio Bilirubin,Total 0.4 mg/dL N 0.2-1.0 Sgot/Ast 17 U/L N 15-37 SGPT/Alt 23 U/L N 12-78 Alkaline Phosphatase 66 U/L N 45-117 Laboratory test 02/11/2017 [facility] Afp Tumor 3.3 ng/ mL 0.0-8.3 52 finding (315)- - Marker,Serum CBC With Auto 10/09/2016 [facility] WBC 4.9 K/uL 4.1-11.0 53 Diff RBC 4.36 M/uL 4.00-5.40 Hemoglobin 12.9 gm/dL 12.0-16.0 Hematocrit 38.1 % 36.0-47.0 MCV 87.3 fL 80.0-97.0 MCH 29.7 pg 27.0-32.0 MCHC 34.0 g/dL 32.0-36.0 RDW 12.6 % 11.5-14.5 PLT Count 246 K/ul 140-400 Neutrophil 52.8 % 35.0-75.0 Lymphocyte 33.9 % 16.0-52.0 Monocyte 11.0 % High 2.0-10.0 Eosinophil 1.9 % 0.0-5.0 Basophil 0.4 % 0.0-4.0 Abs Neutrophils 2.6 K/uL 2.1-8.0 Abs Lymphocytes 1.7 K/uL 0.8-5.5 Abs Monocytes 0.5 K/uL 0.1-1.0 Abs Eosinophils 0.1 K/uL 0.0-0.5 Abs Basophils 0.0 K/uL 0.0-0.3 Basic (BMP) 10/09/2016 [facility] Sodium 135 mmol/L 134-142 Potassium 4.3 mmol/L 3.5-5.2 Chloride 100 mmol/L 97-109 Carbon Dioxide 32 mmol/L 24-34 Glucose 87 mg/dL 70-105 BUN 18 mg/dL 6-26 Creatinine 0.9 mg/dL 0.5-1.4 Calcium 9.3 mg/dL 8.5-10.2 Anion Gap 7 mmol/L 6-14 Non Kimberly Egfr >60 >60 54 Kimberly Egfr >60 >60 55 Lipid 10/09/2016 [facility] Cholesterol 171 mg/dL 50-199 Triglycerides 63 mg/dL 30-150 HDL 69 mg/dL 45-85 56 Chol/ HDL Ratio 2.5 ratio Low 3.7-5.6 VLDL 13 mg/dL 2-29 LDL (Calc) 89 mg/dL 20-99 57 Laboratory test finding 10/09/2016 [facility] Magnesium 2.1 mg/dL 1.5-2.7 Hepatic Panel (LFT) 10/09/2016 [facility] Total Protein 6.6 g/dL 6.0-8.0 Albumin 4.4 g/dL 3.6-4.9 Total Bilirubin 0.7 mg/dL 0.1-1.3 Direct Bilirubin 0.1 mg/dL 0.0-0.4 Alkaline Phosphatase 39 U/L 24-140 Alt 14 U/L 3-42 Ast 17 U/L 8-42 CBC With Auto Diff 04/03/2016 [facility] 4.7 K/uL 4.1-11.0 RBC 4.34 M/uL 4.00-5.40 Hemoglobin 12.6 gm/dL 12.0-16.0 Hematocrit 37.4 % 36.0-47.0 MCV 86.1 fL 80.0-97.0 MCH 29.0 pg 27.0-32.0 MCHC 33.7 g/dL 32.0-36.0 RDW 12.5 % 11.5-14.5 PLT Count 232 K/ul 140-400 Neutrophil 54.3 % 35.0-75.0 Lymphocyte 31.5 % 16.0-52.0 Monocyte 11.3 % High 2.0-10.0 Eosinophil 2.3 % 0.0-5.0 Basophil 0.6 % 0.0-4.0 Abs Neutrophils 2.6 K/uL 2.1-8.0 Abs Lymphocytes 1.5 K/uL 0.8-5.5 Abs Monocytes 0.5 K/uL 0.1-1.0 Abs Eosinophils 0.1 K/uL 0.0-0.5 Abs Basophils 0.0 K/uL 0.0-0.3 Basic (BMP) 04/03/2016 [facility] Sodium 136 mmol/L 134-142 Potassium 4.3 mmol/L 3.5-5.2 Chloride 102 mmol/L 97-109 Carbon Dioxide 31 mmol/L 24-34 Glucose 92 mg/dL 70-105 BUN 20 mg/dL 6-26 Creatinine 1.0 mg/dL 0.5-1.4 Calcium 9.3 mg/dL 8.5-10.2 Anion Gap 7 mmol/L 6-14 Non Kimberly Egfr 56 Low >60 58 Kimberly Egfr >60 >60 59 Lipid 04/03/2016 [facility] Cholesterol 182 mg/dL 50-199 Triglycerides 80 mg/dL 30-150 HDL 66 mg/dL 45-85 60 Chol/ HDL Ratio 2.8 ratio Low 3.7-5.6 VLDL 16 mg/dL 2-29 LDL (Calc) 100 mg/dL 20-129 61 Laboratory test finding 04/03/2016 [facility] Magnesium 2.1 mg/dL 1.5-2.7 Hepatic Panel (LFT) 12/25/2015 [facility] Total Protein 6.7 g/dL 6.0-8.0 Albumin 4.4 g/dL 3.6-4.9 Total Bilirubin 0.3 mg/dL 0.1-1.3 Direct Bilirubin 0.1 mg/dL 0.0-0.4 Alkaline Phosphatase 48 U/L 24-140 Alt 13 U/L 3-42 Ast 15 U/L 8-42 Laboratory test finding 12/25/2015 [facility] Lipase 19 U/L 11-82 Amylase 39 U/L 29-103 CBC With Auto Diff 12/25/2015 [facility] WBC 6.3 K/uL 4.1-11.0 RBC 4.40 M/uL 4.00-5.40 Hemoglobin 12.8 gm/dL 12.0-16.0 Hematocrit 38.7 % 36.0-47.0 MCV 87.9 fL 80.0-97.0 MCH 29.2 pg 27.0-32.0 MCHC 33.2 g/dL 32.0-36.0 RDW 13.3 % 11.5-14.5 PLT Count 254 K/ul 140-400 Neutrophil 63.8 % 35.0-75.0 Lymphocyte 24.8 % 16.0-52.0 Monocyte 9.5 % 2.0-10.0 Eosinophil 1.5 % 0.0-5.0 Basophil 0.4 % 0.0-4.0 Abs Neutrophils 4.0 K/uL 2.1-8.0 Abs Lymphocytes 1.6 K/uL 0.8-5.5 Abmon 0.6 K/uL 0.1-1.0 Abs Eosinophils 0.1 K/uL 0.0-0.5 Abs Basophils 0.0 K/uL 0.0-0.3 Laboratory test finding 08/07/2015 [facility] BUN 18 mg/ dL 7-18 (315)- - Creatinine 1.0 mg/dL 0.6-1.3 Affirm 08/02/2015 [facility] Trichomonas Vaginalis Negative Negative Gardnerella Vaginalis Negative Negative Mady Species Positive Abnormal Negative Laboratory test 08/02/2015 [facility] Urine Culture Microbiology res 62 finding <SEE NOTE> Basic (BMP) 03/20/2015 [facility] Sodium 137 mmol/L 134-142 Potassium 4.8 mmol/L 3.5-5.2 Chloride 103 mmol/L 97-109 Carbon Dioxide 29 mmol/L 24-34 Glucose 86 mg/dL 70-105 BUN 17 mg/dL 6-26 Creatinine 0.9 mg/dL 0.5-1.4 Calcium 9.3 mg/dL 8.5-10.2 Anion Gap 10 mmol/L 6-14 Non Kimberly Egfr >60 >60 63 Kimberly Egfr >60 >60 64 CBC With Auto Diff 03/20/2015 [facility] WBC 5.5 K/uL 4.1-11.0 RBC 4.59 M/uL 4.00-5.40 Hemoglobin 13.4 gm/dL 12.0-16.0 Hematocrit 40.2 % 36.0-47.0 MCV 87.7 fL 80.0-97.0 MCH 29.1 pg 27.0-32.0 MCHC 33.3 g/dL 32.0-36.0 RDW 13.3 % 11.5-14.5 PLT Count 259 K/ul 140-400 Neutrophil 60.7 % 35.0-75.0 Lymphocyte 27.5 % 16.0-52.0 Monocyte 9.5 % 2.0-10.0 Eosinophil 1.7 % 0.0-5.0 Basophil 0.6 % 0.0-4.0 Abs Neutrophils 3.3 K/uL 2.1-8.0 Abs Lymphocytes 1.5 K/uL 0.8-5.5 Abmon 0.5 K/uL 0.1-1.0 Abs Eosinophils 0.1 K/uL 0.0-0.5 Abs Basophils 0.0 K/uL 0.0-0.3 Lipid 03/20/2015 [facility] Cholesterol 162 mg/dL 50-199 Triglycerides 129 mg/dL 30-150 HDL 61 mg/dL 45-85 65 Chol/ HDL Ratio 2.7 ratio Low 3.7-5.6 VLDL 26 mg/dL 2-29 LDL (Calc) 75 mg/dL 20-99 66 Laboratory test finding 03/21/2014 N[facility] Import BUN 14.0 mg/dL 7.0- 18.0 BUN/Creat Ratio 17.5 ratio 12.0-20.0 Calcium 8.7 mg/dL 8.7-10.5 Chloride 106.0 mmol/L 98.0-107.0 Co2 27.0 mmol/L 22.0-30.0 Creatinine-Serum 0.8 mg/dL 0.7-1.2 Glucose 91.0 mg/dL 75.0-110.0 Potasium 4.3 mmol/L 3.6-5.0 Sodium 140.0 mmil/L 137.0-145.0 eGFR 81.4 Laboratory test finding 02/17/2014 N2N/CCD Import BUN 15.0 mg/dL 7.0- 18.0 BUN/Creat Ratio 16.7 ratio 12.0-20.0 Calcium 9.7 mg/dL 8.7-10.5 Chloride 103.0 mmol/L 98.0-107.0 Co2 32.0 mmol/L High 22.0-30.0 Cortisol,Random 9.1 NotEstab.ug/d 67 Creatinine-Serum 0.9 mg/dL 0.7-1.2 Glucose 83.0 mg/dL 75.0-110.0 Potasium 4.6 mmol/L 3.6-5.0 Sodium 140.0 mmil/L 137.0-145.0 TSH 1.29 uIU/ml 0.50-6.00 eGFR 71.0 Lipid Panel 02/17/2014 N2N/CCD Import Chol/HDL Ratio 2.8 ratio Cholesterol 189.0 mg/dL 50.0-199.0 HDL 68.0 mg/dL 45.0-86.0 LDL, Calculated 110.2 mg/dL 20.0-129.0 Triglycerides 54.0 mg/dL 30.0-150.0 vLDL 10.8 ng/dL Laboratory test finding 06/30/2013 N2N/[facility] Import % Baso. 1.2 % 0.0-2.0 % Eos. 1.5 % 0.0-4.0 % Lymph 31 % 20-44 % Stewart 12.0 % High 2.0-10.0 % Shashi 54 % 50-70 A/G Ratio 2.0 ratio 1.6-2.2 Absolute Baso. 0.1 K/ul 0.0-0.3 Absolute Eos. 0.1 K/ul 0.0-0.5 Absolute Lymph. 1.7 K/ul 0.8-4.8 Absolute Stewart. 0.6 K/ul 0.1-1.0 Absolute Shashi. 2.93 K/ul 2.05-7.63 Albumin 4.5 g/dL 3.5-5.0 Alk. Phos. 46.0 U/L 30.0-126.0 Alt 16.0 U/L 9.0-52.0 Anion Gap 9.0 mmol/L Low 10.0-20.0 Ast 20.0 U/L 14.0-36.0 BUN 13.0 mg/dL 7.0-18.0 BUN/Creat Ratio 13.0 ratio 12.0-20.0 Calcium 9.7 mg/dL 8.7-10.5 Chloride 103.0 mmol/L 98.0-107.0 Co2 27.0 mmol/L 22.0-30.0 Creatinine-Serum 1.0 mg/dL 0.7-1.2 Globulin 2.3 g/dL Low 2.7-4.3 Glucose 72.0 mg/dL Low 75.0-110.0 HCT 42.8 % 37.0-51.0 HGB 14.3 Gm/dl 12.0-16.0 MCH 29.7 pg 26.0-32.0 MCHC 33.4 g/dL 31.0-36.0 MCV 88.9 Fl 80.0-97.0 MPV 9.1 fL 6.0-10.0 PLT 242 K/ul 140-440 Potasium 4.2 mmol/L 3.6-5.0 RBC 4.8 M/ul 4.2-6.3 RDW 11.9 % 11.5-14.5 Sodium 139.0 mmil/L 137.0-145.0 Total Bilirubin 0.5 mg/dL 0.2-1.3 Total Protein 6.8 g/dL 6.3-8.2 Vitamin D 35.8 ng/mL 30.0-100.0 WBC 5.4 K/ul 4.1-10.9 eGFR 68.6 mi/minper1.73 68 Lipid Panel 06/30/2013 N2N/CCD Import Chol/HDL Ratio 2.8 ratio Cholesterol 162.0 mg/dL 50.0-199.0 HDL 58.0 mg/dL 45.0-86.0 LDL, Calculated 85.6 mg/dL 20.0-129.0 Triglycerides 92.0 mg/dL 30.0-150.0 vLDL 18.4 ng/dL Laboratory test finding 07/11/2011 N2N/CCD Import . See Note 69 Antinuclear Abs Ifa Negative . 70 Antithrombin III Activity 108 % 75-135 Antithrombin III Antigen 97 % 75-130 Bas% 0.5 % 0.0-1.1 Baso # 0.03 K/uL 0.0-0.1 Eo% 1.7 % 0.0-6.6 Eos # 0.11 K/uL 0.0-0.5 Factor V Activity 61 % 60-140 71 Factor V Leiden See Note 72 Factor VIII Activity 51 % 50-150 73 Hematocrit 38.8 % 36.0-46.1 Hemoglobin 12.8 gm/dL 11.6-15.8 Lymph # 1.67 K/uL 0.8-3.4 Lymph % 25.5 % 17.0-46.1 Mean Cell Volume 87.0 fl 80.9-99.0 Mean Corpuscular HGB 28.7 pg 25.9-32.7 Mean Corpuscular HGB Conc 33.0 g/dL 30.8-34.3 Mean Platelet Volume 11.9 fL 8.9-12.4 Stewart # 0.70 K/uL 0.3-0.9 Stewart % 10.7 % 4.3-13.2 Neut# 4.03 K/uL 1.0-7.0 Neut% 61.6 % 40.4-72.8 Platelet Count 298 K/uL 155-360 Protein C,Antigen 89 % 70-140 Protein C,Functional 112 % 74-151 Protein S,Free 103 % 56-124 Protein S,Functional 101 % 60-145 Protein S,Total 85 % 58-150 Red Blood Count 4.46 M/uL 3.90-5.40 Red Cell Distri Width %CV 13.0 % 11.7-14.4 Red Cell Distri Width SD 40.6 fl 3-47 Rheumatoid Factor Screen Negative Negative 74 Sedimentation Rate 2 mm/hr 0-20 75 White Blood Count 6.5 K/uL 3.1-10.7 Protein Electro.,S 07/11/2011 N2N/CCD Import A/G Ratio 1.9 0.7-2.0 Albumin 4.3 g/dL 3.2-5.6 Urekp-9-Ungkcujb 0.2 g/dL 0.1-0.4 Hqbve-5-Ikahwfje 0.5 g/dL 0.4-1.2 Beta Globulin 0.9 g/dL 0.6-1.3 Gamma Globulin 0.7 g/dL 0.5-1.6 Globulin, Total 2.3 g/dL 2.0-4.5 M-Jin Not Observed Not Observed g P E Interpretation, Serum See Note 76 Please Note: See Note 77 Protein,Total,Serum 6.6 g/dL 6.0-8.5 Laboratory test finding 09/11/2010 N2N/CCD Import Aerobic Culture See Note 78 Gram Stain See Note 79 Laboratory test 05/08/2009 N2N/CCD Import Anti-Nuclear Negative AU/mL Negative finding Antibody(S) Vitamin D,25-Hydroxy 25.3 ng/mL Low 32.0-100.0 80 Vitamin B12 And 05/08/2009 N2N/CCD Import Folic Acid 16.7 ng/mL High 6.0- 15.4 Folate Vitamin B12 350 pg/mL 208-964 Laboratory test 05/08/2009 N2N/CCD Import Absolute 0.050 K/ul 0.0-0.3 finding Basophils Absolute Eosinophils 0.051 K/ul 0.0-0.5 Absolute Lymphocytes 1.41 K/ul 0.8-4.8 Absolute Monocytes 0.639 K/ul 0.1-1.0 Absolute Neutrophils 4.68 K/ul 2.05-7.63 Anion Gap 13 mmol/L 10-20 BUN 16 mg/dL 7-18 BUN/CR Ratio 16.7 Ratio 12-20 Basophil 0.7 % 0-2 Calcium 9.5 mg/dL 8.7-10.5 Carbon Dioxide 28 mmol/L 22-30 Chloride 100 mmol/L 98-107 Creatinine, Serum 1.0 mg/dL 0.7-1.2 Eosinophil 0.8 % 0-4 Esr (Sed Rate/Westergren) 1 SEC 0-25 Free T4 0.72 ng/dL 0.70-1.54 Glucose 80 mg/dL 65-105 Hematocrit 41.4 % 37.0-51.0 Hemoglobin 13.2 GM/dl 12.0-16.0 Hemoglobin A1c 5.1 % 4.1-6.5 Lymphocytes 20.7 % 20-44 MCH 27.9 pg 26.0-32.0 MCHC 32.0 g/dL 31.0-36.0 MCV 87 FL 80-97 Monocytes 9.4 % 2-10.0 Neutrophils 68.5 % 50-70 Platelet Count 282 K/ul 140-440 Potassium 4.8 mmol/L 3.6-5.0 RBC 4.73 M/ul 4.2-6.3 RDW 12.8 % 11.5-14.5 Sodium 137 mmol/L 137-145 TSH 1.501 uIU/ml 0.50-6.00 WBC 6.8 K/ul 4.1-10.9 Laboratory test finding 08/31/2008 N2N/CCD Import Bas% 0.4 % 0.0-1.1 81 Baso # 0.0 K/uL 0.0-0.1 Eo% 2.1 % 0.0-6.6 Eos # 0.1 K/uL 0.0-0.5 Hematocrit 39.6 % 36.0-46.1 Hemoglobin 13.0 gm/dL 11.6-15.8 Lymph # 1.8 K/uL 0.8-3.4 Lymph % 26.6 % 17.0-46.1 Mean Cell Volume 87.4 fl 80.9-99.0 Mean Corpuscular HGB 28.7 pg 25.9-32.7 Mean Corpuscular HGB Conc 32.8 g/dL 30.8-34.3 Mean Platelet Volume 11.2 fL 8.9-12.4 Stewart # 0.7 K/uL 0.3-0.9 Stewart % 10.7 % 4.3-13.2 Neut# 4.1 K/uL 1.0-7.0 Neut% 60.2 % 40.4-72.8 Platelet Count 305 K/uL 155-360 Red Blood Count 4.53 M/uL 3.90-5.40 Red Cell Distri Width %CV 12.6 % 11.7-14.4 Red Cell Distri Width SD 39 fl 3-47 Serum Iron 78 g/dL 25-156 Total Iron Binding Capacity 364 g/dL 245-419 Transferrin 302 mg/dL 200-370 Transferrin %Saturation 21 % 12-57 White Blood Count 6.7 K/uL 3.1-10.7 A/G Ratio 1.8 1.0-2.2 Albumin 4.5 g/dL 3.5-5.0 Alkaline Phosphatase 76 U/L 30-126 Alt 28 U/L 9-52 Ast 27 U/L 14-36 BUN 19 mg/dL High 7-18 BUN/CR Ratio 21.8 Ratio High 12-20 Calcium 9.6 mg/dL 8.7-10.5 Carbon Dioxide 27 mmol/L 22-30 Chloride 100 mmol/L 98-107 Creatinine, Serum 0.9 mg/dL 0.7-1.2 Free T4 0.67 ng/dL Low 0.75-1.54 Globulin 2.6 g/dL Low 2.7-4.3 Glucose 81 mg/dL 65-105 Potassium 4.6 mmol/L 3.6-5.0 Sodium 137 mmol/L 137-145 TSH 1.678 uIU/ml 0.50-6.00 Total Bilirubin 0.2 mg/dL 0.2-1.3 Total Protein 7.1 g/dL 6.3-8.2 Laboratory test finding 11/04/2007 N2N/CCD Import A/G Ratio 1.8 1.0-2.2 Albumin 4.7 g/dL 3.5-5.0 Alkaline Phosphatase 78 U/L 38-126 Alt 51 U/L 9-52 Ast 36 U/L 14-36 Atypical Lymph% 1 % 0-7 BUN 10 mg/dL 7-18 BUN/CR Ratio 10.1 Ratio Low 12-20 Band% 3 % 0-8 Basophil% 1 % 0-2 Calcium 9.4 mg/dL 8.7-10.5 Carbon Dioxide 27 mmol/L 22-30 Chloride 103 mmol/L 98-107 Creatinine, Serum 1.0 mg/dL 0.7-1.2 Eosinophil% 1 % 0-5 Globulin 2.6 g/dL Low 2.7-4.3 Glucose 87 mg/dL 65-105 Hematocrit 41.7 % 34.0-46.0 Hemoglobin 14.6 gm/dL 11.5-15.5 Lymph% 27 % 17-56 Mean Cell Volume 85.3 fL 80.0-96.0 Mean Corpuscular HGB 29.9 pg 27.0-33.0 Mean Corpuscular HGB Conc 35.1 g/dL 31.7-36.0 Mean Platelet Volume 7.2 fl 6.6-10.6 Monocyte% 22 % High 0-10 Monoscreen (Heterophile) Positive High Negative 82 Neutrophils% 45 % 33-73 Platelet Count 243 K/uL 150-400 Platelet Estimate Normal Potassium 4.6 mmol/L 3.6-5.0 RBC Morphology Normal Red Blood Count 4.89 M/uL 3.90-5.20 Red Cell Distri Width %CV 12.2 % 11.6-15.8 Sodium 141 mmol/L 137-145 Total Bilirubin 0.3 mg/dL 0.2-1.3 Total Cells Counted 100 #CELLS Total Protein 7.3 g/dL 6.3-8.2 White Blood Count 3.5 K/uL 3.4-10.5 Laboratory test 10/10/2007 N2N/CCD Import Urine Culture No Growth: Final 83 finding <See Note> Laboratory test 10/09/2007 N2N/CCD Import Mady Species Negative For Can 84 finding <See Note> Cytology Pap See Note 85 Gardnerella Vaginalis <see comment> 86 Trichomonas Vaginalis Negative For Tri <See Note> 87 Laboratory test 11/21/2005 N2N/CCD Import Helicobacter <0.9 U/mL 0.0- 0.8 88 finding Pylori, Igg Laboratory test 09/09/2005 N2N/CCD Import Estradiol,Serum 101 pg/mL 89 finding FSH 3.1 mIU/mL 90 Luteinizing Hormone 7.1 mIU/mL 91 1 Updated reference range on new analyzer 2 Updated reference range on new analyzer 3 Updated reference range 03-03-2019 4 Concerning GFR Guidelines for Americans: Normal function or mild renal disease, if clinically at risk: >/=60 mL/min Moderately decreased: 30-59 Severely decreased: 15-29 Renal failure: <15 There is reduced accuracy above 60ml/min/1.73 m squared, but the numeric value may be clinically useful in the near 60 range 5 Concerning GFR Guidelines: Normal function or mild renal disease, if clinically at risk: >/=60 mL/min Moderately decreased: 30-59 Severely decreased: 15-29 Renal failure: <15 There is reduced accuracy above 60ml/min/1.73 m squared, but the numeric value may be clinically useful in the near 60 range Glomerular Filtration Rate (GFR) is estimated based on the CKD-EPI equation, which assumes a steady state for creatinine as recommended by the National Kidney Disease Education Program in conjunction with the National Institutes of Health and the National Kidney Foundation. Clinical conditions in which it may be necessary to measure GFR by using clearance methods include extremes of age and body size, severe malnutrition or obesity, diseases of skeletal muscle, paraplegia or quadriplegia, vegetarian diet, rapidly changing kidney function, and calculation of the dose of potentially toxic drugs that are excreted by the kidneys. 6 Updated Reference Range 7 Per NCEP ATP III Guidelines: Results lower than 40 mg/dL are suggestive of increased risk for coronary artery disease. Results > or=to 60 mg/dL are considered a negative risk factor. 8 Per NCEP ATP III Guidelines: Normal Population <130 Patients with medical conditions: CHD/DM Optimal: <100 Borderline high: 130-159 High: 160-189 Very high: >189 9 Clinical Guidelines for recommended serum 25(OH)Vitamin D Deficient at less than 20 ng/mL Insufficient at 20 to <30 ng/mL Sufficient at 30-100 ng/mL Toxicity at greater than 100 ng/mL 10 A Negative serologic test for Lyme Disease indicates no serologic evidence of infection with B burgdorferi at the time this specimen was collected. A repeat specimen should be collected in 2 to 4 weeks if clinically indicated. Unless otherwise specified, testing performed by [facility] [address] [place] [id number] 11 PASSED OUT TWICE ON 01/03/19 12 URINE, CLEAN CATCH 13 schedule 1 week prior to next visit 14 Updated reference range on new analyzer 15 Updated reference range on new analyzer 16 Concerning GFR Guidelines: Normal function or mild renal disease, if clinically at risk: >/=60 mL/min Moderately decreased: 30-59 Severely decreased: 15-29 Renal failure: <15 Glomerular Filtration Rate (GFR) is estimated based on the MDRD equation, which assumes a steady state for creatinine as recommended by the National Kidney Disease Education Program in conjunction with the National Institutes of Health and the National Kidney Foundation. Clinical conditions in which it may be necessary to measure GFR by using clearance methods include extremes of age and body size, severe malnutrition or obesity, diseases of skeletal muscle, paraplegia or quadriplegia, vegetarian diet, rapidly changing kidney function, and calculation of the dose of potentially toxic drugs that are excreted by the kidneys. 17 Concerning GFR Guidelines for Americans: Normal function or mild renal disease, if clinically at risk: >/=60 mL/min Moderately decreased: 30-59 Severely decreased: 15-29 Renal failure: <15 18 Updated Reference Range 19 Per NCEP ATP III Guidelines: Results lower than 40 mg/dL are suggestive of increased risk for coronary artery disease. Results > or=to 60 mg/dL are considered a negative risk factor. 20 Per NCEP ATP III Guidelines: Normal Population <130 Patients with medical conditions: CHD/DM Optimal: <100 Borderline high: 130-159 High: 160-189 Very high: >189 21 hematuria 22 Unless otherwise specified, testing performed by [facility] [address] [place] [id number] 23 Microbiology results SOURCE Clean Catch Midstream FINAL RESULT No growth 24 schedule 1 week prior to next visit 25 Updated reference range on new analyzer 26 Updated reference range on new analyzer 27 Concerning GFR Guidelines: Normal function or mild renal disease, if clinically at risk: >/=60 mL/min Moderately decreased: 30-59 Severely decreased: 15-29 Renal failure: <15 Glomerular Filtration Rate (GFR) is estimated based on the MDRD equation, which assumes a steady state for creatinine as recommended by the National Kidney Disease Education Program in conjunction with the National Institutes of Health and the National Kidney Foundation. Clinical conditions in which it may be necessary to measure GFR by using clearance methods include extremes of age and body size, severe malnutrition or obesity, diseases of skeletal muscle, paraplegia or quadriplegia, vegetarian diet, rapidly changing kidney function, and calculation of the dose of potentially toxic drugs that are excreted by the kidneys. 28 Concerning GFR Guidelines for Americans: Normal function or mild renal disease, if clinically at risk: >/=60 mL/min Moderately decreased: 30-59 Severely decreased: 15-29 Renal failure: <15 29 Updated Reference Range 30 Per NCEP ATP III Guidelines: Results lower than 40 mg/dL are suggestive of increased risk for coronary artery disease. Results > or=to 60 mg/dL are considered a negative risk factor. 31 Per NCEP ATP III Guidelines: Normal Population <130 Patients with medical conditions: CHD/DM Optimal: <100 Borderline high: 130-159 High: 160-189 Very high: >189 32 Updated reference range on new analyzer 33 Updated reference range on new analyzer 34 Concerning GFR Guidelines: Normal function or mild renal disease, if clinically at risk: >/=60 mL/min Moderately decreased: 30-59 Severely decreased: 15-29 Renal failure: <15 Glomerular Filtration Rate (GFR) is estimated based on the MDRD equation, which assumes a steady state for creatinine as recommended by the National Kidney Disease Education Program in conjunction with the National Institutes of Health and the National Kidney Foundation. Clinical conditions in which it may be necessary to measure GFR by using clearance methods include extremes of age and body size, severe malnutrition or obesity, diseases of skeletal muscle, paraplegia or quadriplegia, vegetarian diet, rapidly changing kidney function, and calculation of the dose of potentially toxic drugs that are excreted by the kidneys. 35 Concerning GFR Guidelines for Americans: Normal function or mild renal disease, if clinically at risk: >/=60 mL/min Moderately decreased: 30-59 Severely decreased: 15-29 Renal failure: <15 36 Updated reference range on new analyzer 37 Per NCEP ATP III Guidelines: Results lower than 40 mg/dL are suggestive of increased risk for coronary artery disease. Results > or=to 60 mg/dL are considered a negative risk factor. 38 Per NCEP ATP III Guidelines: Normal Population <130 Patients with medical conditions: CHD/DM Optimal: <100 Borderline high: 130-159 High: 160-189 Very high: >189 39 E83.110 R10.9 40 Method: Sediplast Modified Westergren 41 schedule 1 week prior to next visit 42 Updated reference range on new analyzer 43 Updated reference range on new analyzer 44 Concerning GFR Guidelines: Normal function or mild renal disease, if clinically at risk: >/=60 mL/min Moderately decreased: 30-59 Severely decreased: 15-29 Renal failure: <15 Glomerular Filtration Rate (GFR) is estimated based on the MDRD equation, which assumes a steady state for creatinine as recommended by the National Kidney Disease Education Program in conjunction with the National Institutes of Health and the National Kidney Foundation. Clinical conditions in which it may be necessary to measure GFR by using clearance methods include extremes of age and body size, severe malnutrition or obesity, diseases of skeletal muscle, paraplegia or quadriplegia, vegetarian diet, rapidly changing kidney function, and calculation of the dose of potentially toxic drugs that are excreted by the kidneys. 45 Concerning GFR Guidelines for Americans: Normal function or mild renal disease, if clinically at risk: >/=60 mL/min Moderately decreased: 30-59 Severely decreased: 15-29 Renal failure: <15 46 Updated reference range on new analyzer 47 Per NCEP ATP III Guidelines: Results lower than 40 mg/dL are suggestive of increased risk for coronary artery disease. Results > or=to 60 mg/dL are considered a negative risk factor. 48 Per NCEP ATP III Guidelines: Normal Population <130 Patients with medical conditions: CHD/DM Optimal: <100 Borderline high: 130-159 High: 160-189 Very high: >189 49 NO DX Z02.9 50 UNABLE TO PERFORM GLUCOSE TESTING, SPECIMEN DRAWN AT 0841, RECEIVED IN LAB AT 1400. IF GLUCOSE IS NEEDED, PLEASE REDRAW 51 Note: Persistent reduction for 3 months or more in an eGFR <60 mL/min/1.73 m2 defines CKD. Patients with eGFR values >/=60 mL/min/1.73 m2 may also have CKD if evidence of persistent proteinuria is present. The original MDRD equation for estimated GFR is not valid for patients less than 18 years of age. Additional information may be found at www.kdoqi.org. 52 Normal values apply only to males and to non females. These results are not interpretable for females. Leonard ECLIA methodology. Values obtained with different assay methods or kits cannot be used interchangeably. Results cannot be interpreted as absolute evidence of the presence or absence of malignant disease. Performed at: - [facility] [id number] Journeyman Lineman: Jsoeline Alicea MD, Phone: [phone] 53 schedule 1 week prior to next visit 54 Concerning GFR Guidelines: Normal function or mild renal disease, if clinically at risk: >/=60 mL/min Moderately decreased: 30-59 Severely decreased: 15-29 Renal failure: <15 Glomerular Filtration Rate (GFR) is estimated based on the MDRD equation, which assumes a steady state for creatinine as recommended by the National Kidney Disease Education Program in conjunction with the National Institutes of Health and the National Kidney Foundation. Clinical conditions in which it may be necessary to measure GFR by using clearance methods include extremes of age and body size, severe malnutrition or obesity, diseases of skeletal muscle, paraplegia or quadriplegia, vegetarian diet, rapidly changing kidney function, and calculation of the dose of potentially toxic drugs that are excreted by the kidneys. 55 Concerning GFR Guidelines for Americans: Normal function or mild renal disease, if clinically at risk: >/=60 mL/min Moderately decreased: 30-59 Severely decreased: 15-29 Renal failure: <15 56 Per NCEP ATP III Guidelines: Results lower than 40 mg/dL are suggestive of increased risk for coronary artery disease. Results > or=to 60 mg/dL are considered a negative risk factor. 57 Per NCEP ATP III Guidelines: Normal Population <130 Patients with medical conditions: CHD/DM Optimal: <100 Borderline high: 130-159 High: 160-189 Very high: >189 58 Concerning GFR Guidelines: Normal function or mild renal disease, if clinically at risk: >/=60 mL/min Moderately decreased: 30-59 Severely decreased: 15-29 Renal failure: <15 Glomerular Filtration Rate (GFR) is estimated based on the MDRD equation, which assumes a steady state for creatinine as recommended by the National Kidney Disease Education Program in conjunction with the National Institutes of Health and the National Kidney Foundation. Clinical conditions in which it may be necessary to measure GFR by using clearance methods include extremes of age and body size, severe malnutrition or obesity, diseases of skeletal muscle, paraplegia or quadriplegia, vegetarian diet, rapidly changing kidney function, and calculation of the dose of potentially toxic drugs that are excreted by the kidneys. 59 Concerning GFR Guidelines for Americans: Normal function or mild renal disease, if clinically at risk: >/=60 mL/min Moderately decreased: 30-59 Severely decreased: 15-29 Renal failure: <15 60 Per NCEP ATP III Guidelines: Results lower than 40 mg/dL are suggestive of increased risk for coronary artery disease. Results > or=to 60 mg/dL are considered a negative risk factor. 61 Per NCEP ATP III Guidelines: Normal Population <130 Patients with medical conditions: CHD/DM Optimal: <100 Borderline high: 130-159 High: 160-189 Very high: >189 62 Microbiology results SOURCE URINE FINAL RESULT No growth 63 Concerning GFR Guidelines: Normal function or mild renal disease, if clinically at risk: >/=60 mL/min Moderately decreased: 30-59 Severely decreased: 15-29 Renal failure: <15 Glomerular Filtration Rate (GFR) is estimated based on the MDRD equation, which assumes a steady state for creatinine as recommended by the National Kidney Disease Education Program in conjunction with the National Institutes of Health and the National Kidney Foundation. Clinical conditions in which it may be necessary to measure GFR by using clearance methods include extremes of age and body size, severe malnutrition or obesity, diseases of skeletal muscle, paraplegia or quadriplegia, vegetarian diet, rapidly changing kidney function, and calculation of the dose of potentially toxic drugs that are excreted by the kidneys. 64 Concerning GFR Guidelines for Americans: Normal function or mild renal disease, if clinically at risk: >/=60 mL/min Moderately decreased: 30-59 Severely decreased: 15-29 Renal failure: <15 65 Per NCEP ATP III Guidelines: Results lower than 40 mg/dL are suggestive of increased risk for coronary artery disease. Results > or=to 60 mg/dL are considered a negative risk factor. 66 Per NCEP ATP III Guidelines: Normal Population <130 Patients with medical conditions: CHD/DM Optimal: <100 Borderline high: 130-159 High: 160-189 Very high: >189 67 No Reference Range has been established for analyte. 68 For -[place] patients multiply result by 1.180 69 Genetic counselors are available for health care providers to discuss results at [phone] ([phone]). Methodology: DNA analysis of the Factor V gene was performed by allele- specific PCR followed by gel electrophoresis. The diagnostic sensitivity and specificity is >99% for both. Molecular- based testing is highly accurate, but as in any laboratory test, diagnostic errors may occur. All test results must be combined with clinical information for the most accurate interpretation. References: Nick Ramon (1996). Clin Lab Med 16:169-186. Roger Smith, Ph.D. Madison Guerrreo, Ph.D. Cris Hurt, Ph.D. Laura Crouch, Ph.D. Fozia Velasquez, Ph.D. Ingrid Ramsey M.D. Luz Elena Lockhart, Ph.D. Performed at: [facility] [address] [id number] Journeyman Lineman: Chrystal Claire MD, Phone: [phone] 70 Negative <1:80 Borderline 1:80 Positive >1:80 Performed at: [facility] [address] [place], [place] [id number] Journeyman Lineman: Osmel Carty MD, Phone: [phone] Performed at: [facility] [address] [id number] Journeyman Lineman: Wilner Torres MD, Phone: [phone] 71 Performed at: [address] [id number] Journeyman Lineman: Wilner Torres MD, Phone: [phone] 72 Result: Negative (no mutation found) Factor V Leiden is a specific mutation ([id number]) in the factor V gene that is associated with an increased risk of venous thrombosis. Factor V Leiden is more resistant to inactivation by activated protein C. As a result, factor V persists in the circulation leading to a mild hyper- coagulable state. The Leiden mutation accounts for 90% - 95% of APC resistance. Factor V Leiden has been reported in patients with deep vein thrombosis, pulmonary embolus, central retinal vein occlusion, cerebral sinus thrombosis and hepatic vein thrombosis. Other risk factors to be considered in the workup for venous thrombosis include the [id number] mutation in the factor II (prothrombin) gene, protein S and C deficiency, and antithrombin deficiencies. Anticardiolipin antibody and lupus anticoagulant analysis may be appropriate for certain patients, as well as homocysteine levels. Contact your local [facility] for information on how to order additional testing if desired. 73 Performed at: [address] [id number] Journeyman Lineman: Wilner Torres MD, Phone: [phone] 74 QUERY: @[facility] Pat ID: QUERY: @[facility] Req #: 75 QUERY: @[facility] Pat ID: QUERY: @[facility] Req #: 76 The SPE pattern appears essentially unremarkable. Evidence of monoclonal protein is not apparent. 77 Protein electrophoresis scan will follow via computer, mail, or animal trainer delivery. 78 NO GROWTH: FINAL REPORT 79 GRAM STAIN ! NO ORGANISMS SEEN 80 Recent studies consider the lower limit of 32.0 ng/mL to be a threshold for optimal health. Carlos BW. J Nutr. 2005 Dec;135(2):317-22. 81 today, letter fu or to anna Kirkpatrick 82 Note: This test has not been established for use in patients less than 18 years of age. 83 NO GROWTH: FINAL REPORT 84 NEGATIVE FOR MADY SPECIES 85 Cytology [id number] [facility] [address] [facility] [place] [address] CYTOLOGY REPORT Name: Chanel Goetz : 1965 (Age: 41) Sex: F Location: [facility] Soc. Sec. #: [id number] Date Collected: 10/09/2007 Billing #: [id number] Date Received: 10/12/2007 Physician(s): Flor MURPHY RPA Source of Specimen: ENDOCERVICAL/THIN PREP Clinical Information: Date of Last Menstrual Period: 09/23/07 Menstrual History:Regular Dysplasia/Cancer History:Abnormal Pap smear(s): 18 months ago, possible ASCUS Other Clinical Conditions:Additional comment: current vulvovaginitis Specimen Adequacy: SATISFACTORY FOR EVALUATION. ADEQUATE ENDOCERVICAL/TRANSFORMATION ZONE. General Categorization: NEGATIVE FOR INTRAEPITHELIAL LESION OR MALIGNANCY. mda Electronic Signature YOANNA Robles (ASCP) Reported: 10/15/2007 Cytology [facility] ICD-9 Code(s ) V72.31 86 POSITIVE FOR GARDNERELLA VAGINALIS Testing Performed by: [place] [address] 87 NEGATIVE FOR TRICHOMONAS VAGINALIS 88 Negative <0.9 Indeterminate 0.9 - 1.0 Positive >1.0 89 NORMALLY MENSTRUATING FEMALES: Follicular Phase:...............39-189 pg/mL Mid-Cycle Peak:.................94-508 pg/mL Luteal Phase:...................48-309 pg/mL POSTMENOPAUSAL FEMALE:..............0- 41 pg/mL 90 NORMALLY MENSTRUATING FEMALES: Follicular Phase:...............4-13 mIU/mL Mid-Cycle Peak:.................5-22 mIU/mL Luteal Phase:...................2 -13 mIU/mL Postmenopausal Female:........20-138 mIU/mL 91 NORMALLY MENSTRUATING FEMALES: Follicular Phase.............1-18 mIU/mL Mid -Cycle Peak.............24-105 mIU/mL Luteal Phase...............0.4-20 mIU/mL Postmenopausal .............15-62 mIU/mL Procedures Date Code Description Status 08/05/2016 96450 Measure Blood Oxygen Level Single Determination Completed 07/16/2016 33308 Measure Blood Oxygen Level Single Determination Completed 04/25/2016 30160307 Mammogram Completed 01/11/2016 95097108 Colonoscopy Completed 11/16/2015 88500 Echography Transvaginal Completed 04/06/2015 32689 Electrocardiogram Complete Completed 02/17/2014 05751 Electrocardiogram Complete Completed 06/28/2013 58419 Omt 3-4 Body Regions Completed 03/25/2011 45778 Mammography Unilateral Completed 09/03/2007 44624 Omt 1-2 Body Regions Completed 09/03/2007 65039 Tympanometry Completed 02/13/2007 07771 Omt 1-2 Body Regions Completed 10/15/2005 26319 Deleted Code Use 59408 Completed 08/30/2004 25893 Omt 3-4 Body Regions Completed Encounters Type Date Location Provider Dx Diagnosis Office Visit 10/20/2018 [facility] Yonathan Gomez DO I10 Essential (primary) 9:45a hypertension K21.9 Gastro-esophageal reflux disease without esophagitis I73.00 Raynaud's syndrome without gangrene R10.32 LEFT lower quadrant pain G47.00 Insomnia, unspecified F90.0 Attn-defct hyperactivity disorder, predom inattentive type E83.110 Hereditary hemochromatosis F32.9 Major depressive disorder, single episode, unspecified J30.9 Allergic rhinitis, unspecified Office Visit 09/07/2018 11:00a [facility] Yonathan Gomez DO 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 N95.0 Postmenopausal bleeding G47.00 Insomnia, unspecified M54.5 Low back pain Office Visit 08/28/2018 1:30p [facility] Lizzy Lund MD R10.814 LEFT lower quadrant abdominal tenderness 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 N95.0 Postmenopausal bleeding R31.9 Hematuria, unspecified Office Visit 04/20/2018 3:30p [facility] Yonathan Gomez DO I10 Essential ( primary) hypertension K21.9 Gastro-esophageal reflux disease without esophagitis I73.00 Raynaud's syndrome without gangrene R10.32 LEFT lower quadrant pain G47.00 Insomnia, unspecified F90.0 Attn-defct hyperactivity disorder, predom inattentive type E83.110 Hereditary hemochromatosis F32.9 Major depressive disorder, single episode, unspecified J30.9 Allergic rhinitis, unspecified J01.00 Acute maxillary sinusitis, unspecified Office Visit 04/16/2018 10:45a [facility] Kajal Sanchez PA J01.00 Acute maxillary sinusitis, unspecified Office Visit 01/08/2018 4:00p [facility] Yonathan Gomez DO R10.32 LEFT lower quadrant pain Office Visit 10/16/2017 8:00a [facility] Jonathan Messer DO I10 Essential ( primary) hypertension K21.9 Gastro-esophageal reflux disease without esophagitis I73.00 Raynaud's syndrome without gangrene F90.0 Attn-defct hyperactivity disorder, predom inattentive type F32.1 Major depressive disorder, single episode, moderate Office Visit 05/28/2017 2:30p [facility] Kajla Sanchez PA K12.0 Recurrent oral aphthae Office Visit 04/16/2017 9:30a [facility] Jonathan Messer DO I10 Essential ( primary) hypertension K21.9 Gastro-esophageal reflux disease without esophagitis I73.00 Raynaud's syndrome without gangrene F90.0 Attn-defct hyperactivity disorder, predom inattentive type F32.1 Major depressive disorder, single episode, moderate 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, unspecified Office Visit 12/06/2016 8:30a [facility] Jonathan Messer DO J06.9 Acute upper respiratory infection, unspecified Office Visit 10/16/2016 10:45a [facility] Jonathan Messer DO I10 Essential ( primary) hypertension K21.9 Gastro-esophageal reflux disease without esophagitis I73.00 Raynaud's syndrome without gangrene F32.1 Major depressive disorder, single episode, moderate F90.0 Attn-defct hyperactivity disorder, predom inattentive type Z84.89 Family history of other specified conditions Office Visit 08/05/2016 8:15a [facility] Rosa Isela Moser, HEALTH AND PHYSICAL EDUCATION TEACHER R05 Cough N39.3 Stress incontinence (female) (male) Office Visit 07/16/2016 11:30a [facility] Rosa Isela Moser, R05 Cough HEALTH AND PHYSICAL EDUCATION TEACHER Office Visit 04/09/2016 8:15a [facility] Jonathan Messer DO I10 Essential ( primary) hypertension K21.9 Gastro-esophageal reflux disease without esophagitis F32.1 Major depressive disorder, single episode, moderate F90.0 Attn-defct hyperactivity disorder, predom inattentive type Z84.89 Family history of other specified conditions I73.00 Raynaud's syndrome without gangrene Office Visit 03/11/2016 10:45a [facility] Rosa Isela Moser, L03.211 Cellulitis of face HEALTH AND PHYSICAL EDUCATION TEACHER Office Visit 01/02/2016 1:45p [facility] Jonathan Messer DO R10.11 RIGHT upper quadrant pain K58.9 Irritable bowel syndrome without diarrhea Office Visit 12/25/2015 4:00p [facility] Jonathan Messer DO R10.11 RIGHT upper quadrant pain Office Visit 10/06/2015 8:45a [facility] Jonathan Messer DO I10 Essential ( primary) hypertension F32.1 Major depressive disorder, single episode, moderate F90.0 Attn-defct hyperactivity disorder, predom inattentive type K21.9 Gastro-esophageal reflux disease without esophagitis B00.1 Herpesviral vesicular dermatitis Z84.89 Family history of other specified conditions M79.602 Pain in LEFT arm Office Visit 08/29/2015 2:30p [facility] Jonathan Messer DO 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 Z23 Encounter for immunization Office Visit 08/02/2015 2:00p [facility] Elsie Robison PA N76.0 Acute vaginitis R35.0 Frequency of micturition Office Visit 04/06/2015 1:45p [facility] Jonathan Messer DO 401.1 Hypertension Benign 296.22 Depressive Disorder Major Single Episode Moderate 314.00 Attention Deficit Disorder W/O Mention Of Hyperactivity 530.81 Esophageal Reflux 786.59 Pain Chest Other Office Visit 11/29/2014 11:00a [facility] Jonathan Messer DO 465.9 URI Upper Respiratory Infections Acute Unspec Sites Plan of Treatment Future Appointment(s):10/15/2019 8:15 am - Schedule, Laboratory at [facility]2018 8:00 am - Yonathan Gomez DO at [facility]04/22/2019 - Yonathan Gomez, DOI10 Essential (primary) hypertensionNew Labs:Basic (BMP), Scheduled: 10/15/19CBC with Auto Diff-fcmg, Scheduled: 10/15/19TSH, Scheduled: 10/15/19Lipid Treatment , Scheduled: 10/15/19Comments:Today, the patient's BP is at 118/78. The patient 's was advised to continue with current line of therapies. The patient will benefit from maintaining a low sodium diet. The patient was encouraged tomonitor his BP periodically at home and maintain a log of the same to bring along during his next visit for comparison. We will continue to monitor.Follow up:Blood work in 6 months and will follow up with me a couple of days later.K21.9 Gastro-esophageal reflux disease without dtuxhtzydewE11.32 LEFT lower quadrant painG47.00 Insomnia, unspecifiedNew Labs:Vitamin D 25 Hydroxy, Scheduled: 10/15/19F90.0 Attention-deficit hyperactivity disorder, predominantly inatF32.9 Major depressive disorder, single episode, vxozotilgpvY89.9 Allergic rhinitis, kdgdffktfjgU40.110 Hereditary nvrkmxswlnlygbkR78 Syncope and collapseComments:had in 01/19. None since. Workup neg. Will monitor for recurrence. Improving with increased dose of Adderall. Will continue.M54.5 Low back painComments:The patient was advised to apply moist or heat to the painful/tight area a few times a day as tolerated. Advised the patient to try amlodipine during Winter. Demonstrated some stretching exercises andadvised her to perform these exercises on regular basis. We will continue to monitor.I73.00 Raynaud's syndrome without gangrene
[2019-05-14 11:09] VITALS: BP 112/82
[2019-05-14] MEDS ORDERED: Lidocaine 1% MPF ** 5 ML VIAL INJ ONE (11:48)
--- NOTE | 2019-05-14 12:31 | UC ---
Laceration HPI - HPI Summary HPI Summary: Pt presents with c/o laceration at dorsal MIP joint of left middle finger. Pt was is unsure of tetanus status and will check with PCP. Pt states laceration was caused by "old" glass window. - History Of Current Complaint Chief Complaint: UCWounds Stated Complaint: LEFT MIDDLE FINGER LAC Time Seen by Provider: 05/14/19 11:36 Hx Obtained From: Patient Hx Last Menstrual Period: 02/03/14 Laceration Location: Finger - left middle Mechanism Of Injury: Sharp Trauma Onset/Duration: Sudden Onset Severity: Mild Pain Intensity: 3 Aggravating Factors: Position, Movement Related History: Dominant Hand Right - Allergies/Home Medications Allergies/Adverse Reactions: Allergies Allergy/AdvReac Type Severity Reaction Status Date / Time sulfamethoxazole Allergy Rash Verified 05/14/19 11:09 [From Bactrim] trimethoprim [From Bactrim] Allergy Rash Verified 05/14/19 11:09 Home Medications: Home Medications Lisinopril TAB* [Prinivil TAB 5 MG*] 5 mg PO DAILY 05/14/19 [History Confirmed 05/14/19] PMH/Surg Hx/FS Hx/Imm Hx Previously Healthy: Yes - Surgical History Surgical History: None - Family History Known Family History: Positive: Cardiac Disease - Social History Occupation: Employed Full-time Lives: With Family Alcohol Use: Occasionally Substance Use Type: None Smoking Status (MU): Former Smoker Have You Smoked in the Last Year: No When Did the Patient Quit Smoking/Using Tobacco: 25 yrs ago - Immunization History Most Recent Tetanus Shot: within last 10 years Vaccination Up to Date: Yes Review of Systems All Other Systems Reviewed And Are Negative: Yes Constitutional: Positive: Negative Skin: Positive: Other - laceration to left middle finger mip joint, dorsal aspect Eyes: Positive: Negative ENT: Positive: Negative Respiratory: Positive: Negative Cardiovascular: Positive: Negative Gastrointestinal: Positive: Negative Genitourinary: Positive: Negative Motor: Positive: Negative Neurovascular: Positive: Negative Musculoskeletal: Positive: Myalgia - at laceration site Neurological: Positive: Negative Psychological: Positive: Negative Is Patient Immunocompromised?: No Physical Exam Triage Information Reviewed: Yes Appearance: Pain Distress Vital Signs: Initial Vital Signs Temp 99.1 F 05/14/19 11:05 Pulse 84 05/14/19 11:05 Resp 14 05/14/19 11:05 BP 112/82 05/14/19 11:05 Pulse Ox 100 05/14/19 11:05 Vital Signs Reviewed: Yes Eye Exam: Normal ENT: Positive: Hearing grossly normal Dental Exam: Normal Neck exam: Normal Respiratory: Positive: No respiratory distress Musculoskeletal Exam: Normal Musculoskeletal: Positive: Strength Intact, ROM Intact Neurological Exam: Normal Psychological Exam: Normal Skin Exam: Other - laceration left middle finger, mip dorsal Laceration Repair - Laceration Repair 1 Description: Linear Laceration Size After Repair: Length (cm) - 1, Width (mm) - 3, Depth (mm) - 3 Modified For Repair: No Anesthesia Used: 1.0% Lido - 3 ML injected Cleansing Completed Via Routine Prep: Yes Irrigation With Pressure Irrigation Device: Yes Closure Material: Sutures - 5 sutures of 5-0 prolene placed Closure Method: Single Layer Suture Of: Skin Suture Type: Prolene Laceration Course/Dx - Differential Dx - Laceration/Wound Differental Diagnoses: Laceration, Tendon Laceration - Diagnosis Provider Diagnosis: Laceration of left middle finger w/o foreign body w/o damage to nail Discharge - Sign-Out/Discharge Documenting (check all that apply): Patient Departure All imaging exams completed and their final reports reviewed: No Studies - Discharge Plan Condition: Stable Disposition: HOME Prescriptions: Cephalexin CAP* [Keflex 500 CAP*] 500 mg PO Q12H #14 cap Fluconazole 100 MG TAB* [Diflucan 100 MG TAB*] 100 mg PO DAILY #2 tab Patient Education Materials: Care For Your Stitches (DC), Laceration (ED) Referrals: Yonathan Gomez DO [Primary Care Provider] - If Needed Additional Instructions: Please follow up with your PCP with regard to your Tetanus vaccination. Please return to clinic or see your PCP in 10-14 days for suture removal. PLease monitor for signs or symptoms of infection such as redness, discharge, increased tenderness, fever or chills. - Billing Disposition and Condition Condition: STABLE Disposition: Home
== END 2019-05-14 12:41 | disposition home or self-care (01) ==
LOC: UCCORT 09:56
DX: S61.213A Laceration without foreign body of left middle finger without damage to nail, initial encounter (principal); W25.XXXA Contact with sharp glass, initial encounter; Y92.9 Unspecified place or not applicable; Z87.891 Personal history of nicotine dependence
CPT/HCPCS: 12001; 99202; G0463